=== PATIENT | female | born 1995 | race Caucasian/White ===

== ENCOUNTER 2019-05-02 14:54 | Outpatient (CLI) | payer MEDICAID, SELFPAY ==
[2019-05-02 15:28] LABS: Abs Immature Grans 0.06 k/cumm (0.0-0.09); Absolute Basophil Count 0.05 k/cumm (0.0-0.2); Absolute Eosinophil Count 0.24 k/cumm (0.0-0.7); Absolute Lymphocyte Count 3.28 k/cumm (1.2-3.4); Absolute Monocyte Count 1.08 k/cumm (0.11-0.7); Absolute Neutrophil Count 5.71 k/cumm (1.2-6.7); Basophils % 0.5; Eosinophils % 2.3; HCT 43.9 % (36.0-46.0); HGB 14.7 g/dL (12.0-15.5); Immature Grans % 0.6 %; Lymphocytes % 31.5; Mean Corp. HGB Concentration 33.5 g/dL (32.0-36.0); Mean Corpuscular Hemoglobin 29.6 pg (27.0-33.0); Mean Corpuscular Volume 88.3 fL (80-95); Mean Platelet Volume 10.2 fL (8.0-11.0); Monocytes % 10.4; Neutrophils % 54.7; Platelet Count 318 x1000/uL (130-400); RBC 4.97 m/cumm (4.00-5.20); RBC Distribution Width 12.6 % (11.7-14.6); White Blood Cell Count 10.42 k/cumm (4.4-10.8)
[2019-05-02 16:18] LABS: Hemoglobin A1C 5.9 % (3.8-5.6)
[2019-05-02 16:23] LABS: ALT 64 U/L (14-59); AST 28 U/L (15-37); Albumin 4.3 g/dL (3.4-5.0); Alkaline Phosphatase 110 U/L (46-116); Anion Gap 11.4 mmol/L (3-11); BUN 9 mg/dL (7-18); Bilirubin, Total 0.3 mg/dL (0.2-1.0); CO2 26.6 mmol/L (21.0-32.0); Calcium 9.1 mg/dL (8.5-10.1); Chloride 104 mmol/L (98-107); Glucose 85 mg/dL (74-106); Potassium 4.3 mmol/L (3.5-5.1); Sodium 142 mmol/L (136-145); TSH (W/Ref FT4) 2.29 uIU/mL (0.36-3.74); Total Protein 7.9 g/dL (6.4-8.2)
== END 2019-05-02 15:14 ==
PROVIDERS: PCP Nurse Practitioner Family; Visit Provider Obstetrics & Gynecology
DX: N91.2 Amenorrhea, unspecified (principal)
CPT/HCPCS: 36415; 80053; 83036; 84443; 85025

== ENCOUNTER 2023-06-04 10:50 | Outpatient (CLI) | payer OTHER, SELFPAY ==
[2023-06-04 12:22] LABS: Abs Immature Grans 0.02 10^3/uL (0.0-0.06); Absolute Basophil Count 0.06 10^3/uL (0.0-0.2); Absolute Eosinophil Count 0.26 10^3/uL (0.0-0.7); Absolute Lymphocyte Count 3.31 10^3/uL (1.2-3.4); Absolute Monocyte Count 0.58 10^3/uL (0.1-0.8); Absolute Neutrophil Count 4.83 10^3/uL (1.2-6.7); Basophils % 0.7; Eosinophils % 2.9; HCT 42.5 % (36.0-46.0); HGB 14.4 g/dL (11.2-15.7); Immature Grans % 0.2; Lymphocytes % 36.5; MCH 29.3 pg (27.0-33.0); MCHC 33.9 % (32.0-36.0); MCV 87 fL (80-95); Monocytes % 6.4; Neutrophils % 53.3; Platelet Count 358 10^3/uL (130-400); RBC 4.91 10^6/uL (3.93-5.22); RDW 11.8 % (11.7-14.6); RDW-SD 37.7 fL; WBC 9.06 10^3/uL (4.4-10.8)
[2023-06-04 12:34] LABS: Hemoglobin A1C 5.3 % (<5.7)
[2023-06-04 12:46] LABS: ALT 40 U/L (14-59); AST 18 U/L (15-37); Albumin 4.1 g/dL (3.4-5.0); Alkaline Phosphatase 78 U/L (46-116); Anion Gap 10.1 mmol/L (3-11); BUN 7 mg/dL (7-18); Bilirubin, Total 0.4 mg/dL (0.2-1.0); CO2 25.9 mmol/L (21.0-32.0); CREATININE 0.8 mg/dL (0.55-1.02); Calcium 9.4 mg/dL (8.5-10.1); Calculated LDL 117 mg/dL (<100); Chloride 103 mmol/L (98-107); Cholesterol 179 mg/dL (<200); Glucose 100 mg/dL (74-106); HDL Cholesterol 34 mg/dL (40-60); Potassium 4.3 mmol/L (3.5-5.1); Sodium 139 mmol/L (136-145); TSH (W/Ref FT4) 1.03 uIU/mL (0.36-3.74); Total Protein 7.8 g/dL (6.4-8.2); Triglyceride 143 mg/dL (<150)
[2023-06-05 10:07] LABS: Insulin 10.6 uIU/mL (<29.0)
[2023-06-05 17:05] LABS: C-Peptide 2.6 ng/mL (1.1 - 4.4)
[2023-06-12 09:58] LABS: ZnT8 Antibodies <15.0 U/mL (<15.0)
== END 2023-06-04 10:51 | disposition home or self-care (01) ==
LOC: LOS 10:50
PROVIDERS: PCP Nurse Practitioner Family; Referring Provider Nurse Practitioner Family; Visit Provider Nurse Practitioner Family
DX: Z76.89 Persons encountering health services in other specified circumstances (principal); E11.9 Type 2 diabetes mellitus without complications
CPT/HCPCS: 36415; 80053; 80061; 86337; 86341; 83036; 83525; 84443; 84681; 85025

== ENCOUNTER 2023-09-28 10:52 | Outpatient (REF) | payer OTHER, SELFPAY ==
--- NOTE | 2023-09-28 10:30 | PAPFT_PTH ---
PATIENT: Gudelia Cuellar LOC: [facility] U#:[id number] AGE/SX: 27/F ROOM: RE09/28/[address]: Adrienne Carranza NP : 1995 BED: DIS: 09/28/2023 SPEC #: [id number] RECD: 09/28/23 12:58 STATUS: VENESSA EVENS #: [id number] TOD: 09/28/23 10:[address]: Adrienne Carranza NP DEPT: [facility] Cytology RECD BY: Adrianne Hartmann ENTERED: 09/28/23 12:59 SP TYPE: PAPFT OTHR DR: Jaylyn Huston, SILVERING APPLICATOR Tissues: 1 - CX/ENDOCX FOR PAP SMEARS Procedures: PAP THIN PREP/UVM Screening HPV DNA PROBE Comments: [id number]
== END 2023-09-28 10:53 | disposition home or self-care (01) ==
LOC: LBN 10:52
PROVIDERS: PCP Nurse Practitioner Family; Visit Provider Nurse Practitioner Women's Health
DX: Z12.4 Encounter for screening for malignant neoplasm of cervix (principal)
CPT/HCPCS: 88142; 87624

== ENCOUNTER 2023-11-06 14:52 | Outpatient (REF) | payer OTHER, SELFPAY ==
--- OUTSIDE RECORDS SUMMARY | 2023-11-06 15:01 | XMS_ITS | Referral Summary ---
Author Organization [facility] Address [address] [place] [address] Care Team Providers Care Director Client Services Name Role Phone Unavailable Primary Care Provider Unavailabl e Encounters Date Type Department Care Team Description 09/30/[address] [facility] Pathology & Laboratory Medicine - [facility] [address] [place] [address] Adrienne Carranza APRN Encounter for other general examination from Last 3 Months Social History Tobacco Use Types Packs/Day Years Used Date Smoking Tobacco: Never Assessed Sex and Gender Information Value Date Recorded Sex Assigned at Not on file Gender Identity Not on file Sexual Orientation Not on file Plan of Treatment Not on file Procedures Procedure Name Priority Date/Time Associated Diagnosis Comments PAP TEST Today 09/28/2023 10:30 EDT Encounter for other general examination HPV DNA DETECTION WITH GENOTYPING, PCR Today 09/28/2023 10:30 EDT Encounter for other general examination from Last 3 Months Results * PAP TEST (09/28/2023 10:30 EDT) Specimens A. Cervix and/or Endocervix , ThinPrep Imaging System with Manual Evaluation 10/05/2023 15:41 T [facility] Specimen Adequacy Satisfactory for Evaluation - transformation zone component present 10/05/2023 15:41 T [facility] General Categorization Negative for intraepithelial lesion or malignancy 10/05/2023 15:41 T [facility] Descriptive Diagnosis Shift in selene present suggestive of bacterial vaginosis. 10/05/2023 15:41 T [facility] Attestation . 10/05/2023 15:41 [facility] at 1541 Clinical History See below 10/05/19 15:41 EDT [facility] HPV The result for the Human Papillomavirus (HPV) Detection-High Risk Types is Negative. No E6 or E7 mRNA is detected from HPV types 16,18,31,33,35,39 ,45,51,52,56,58,5 9,66, and 68 by industrial sales representative mediated amplification.Mattie ting was performed on specimen [id number] and was resulted on 10/05/2023 1541 EDT by KEITH, LAB INSTRUMENT RESULTS IN 10/05/2023 15:41 EDT [facility] Performing Lab [facility] 10/05/2023 15:41 EDT [facility] Scanned Images 10/05/2023 15:41 EDT [facility] Pap Test CERVIX UTERI STRUCTURE / Unknown 09/28/2023 10:30 EDT 09/30/2023 9:05 EDT Adrienne Carranza APRN PATHOLOGY ORDERAB LES Performing Organization Address City/[facility]/ZIP Co de Phone Number [facility] [address] [place] [address] * HUMAN PAPILLOMAVIRUS (HPV) DETECTION-HIGH RISK TYPES (09/28/2023 10:30 EDT) HPV other High Risk types, PCR Negative Negative 10/05/2023 15:41 EDT [facility] Comment:No E6 or E7 mRNA is detected from HPV types 16,18,31,33,35,39,45,51,52,56,58,59,66, and 68 by industrial sales representative mediated amplification. Pap Test CERVIX UTERI STRUCTURE / Unknown 09/28/2023 10:30 EDT 10/02/2023 10:17 EDT Adrienne Carranza APRN MICROBIOLOGY - GE NERAL ORDERABLES Performing Organization Address City/[facility]/ZIP Co de Phone Number [facility] [address] [place] [address] from Last 3 Months
--- OUTSIDE RECORDS SUMMARY | 2023-11-06 15:01 | XMS_ITS | Clinical Summary ---
Author Organization [facility] Address [address] [place] [address] Care Team Providers Care Pullman Car Repairer Name Role Phone Unavailable Primary Care Provider Unavailabl e Encounters Date Type Department Care Team Description 09/30/2023 Lab Requisition [facility] Pathology & Laboratory Medicine - [facility] [address] [place] [address] Adrienne Carranza APRN Encounter for other general examination from Last 3 Months Social History Tobacco Use Types Packs/Day Years Used Date Smoking Tobacco: Never Assessed Sex and Gender Information Value Date Recorded Sex Assigned at Not on file Gender Identity Not on file Sexual Orientation Not on file Plan of Treatment Health Maintenance Due Date Last Done Comments Hepatitis C Screen 1995 Hepatitis B Vaccine (1 of 3 - 19+ 3-dose series) 11/10 COVID-19 Vaccine ( season) 2022 Procedures Procedure Name Priority Date/Time Associated Diagnosis Comments PAP TEST Today 09/28/2023 10:30 EDT Encounter for other general examination HPV DNA DETECTION WITH GENOTYPING, PCR Today 09/28/2023 10:30 EDT Encounter for other general examination from Last 3 Months Results * PAP TEST (09/28/2023 10:30 EDT) Specimens A. Cervix and/or Endocervix , ThinPrep Imaging System with Manual Evaluation 10/05/2023 15:41 EDT [facility] Specimen Adequacy Satisfactory for Evaluation - transformation zone component present 10/05/2023 15:41 EDT [facility] General Categorization Negative for intraepithelial lesion or malignancy 10/05/2023 15:41 EDT [facility] Descriptive Diagnosis Shift in selene present suggestive of bacterial vaginosis. 10/05/2023 15:41 EDT [facility] Attestation . 10/05/2023 15:41 EDT [facility] at 1541 Clinical History See below 10/05/19 15:41 EDT [facility] HPV The result for the Human Papillomavirus (HPV) Detection-High Risk Types is Negative. No E6 or E7 mRNA is detected from HPV types 16,18,31,33,35,39 ,45,51,52,56,58,5 9,66, and 68 by extra hand mediated amplification.Mattie ting was performed on specimen [id number] and was resulted on 10/05/2023 1541 EDT by KEITH, LAB INSTRUMENT RESULTS IN 10/05/2023 15:41 EDT [facility] Performing Lab [facility] 10/05/2023 15:41 EDT [facility] Scanned Images 10/05/2023 15:41 EDT [facility] Pap Test CERVIX UTERI STRUCTURE / Unknown 09/28/2023 10:30 EDT 09/30/2023 9:05 EDT Adrienne Carranza APRN PATHOLOGY ORDERAB LES [facility] [address] [place], [place] [address] * HUMAN PAPILLOMAVIRUS (HPV) DETECTION-HIGH RISK TYPES (09/28/2023 10:30 EDT) HPV other High Risk types, PCR Negative Negative 10/05/2023 15:41 EDT [facility] Comment:No E6 or E7 mRNA is detected from HPV types 16,18,31,33,35,39,45,51,52,56,58,59,66, and 68 by extra hand mediated amplification. Pap Test CERVIX UTERI STRUCTURE / Unknown 09/28/2023 10:30 EDT 10/02/2023 10:17 EDT Adrienne Carranza APRN MICROBIOLOGY - GE NERAL ORDERABLES [facility] [address] [place] [address] from Last 3 Months
--- OUTSIDE RECORDS SUMMARY | 2023-11-06 15:01 | XMS_ITS | Encounter Summary ---
Author Organization [facility] Address [address] [place] [address] Care Team Providers Care Senior Software Project Manager Name Role Phone Unavailable Primary Care Provider Unavailabl e Encounter Details Date Type Department Care Team (Late st Contact Info) Description 06/04/2023 Lab Requisition [facility] Pathology & Laboratory Medicine - [address] [address] Outr Resulting Lab, Provider Social History Tobacco Use Types Packs/Day Years Used Date Smoking Tobacco: Never Assessed Sex and Gender Information Value Date Recorded Sex Assigned at Not on file Gender Identity Not on file Sexual Orientation Not on file documented as of this encounter Plan of Treatment Not on file documented as of this encounter Procedures Procedure Name Priority Date/Time Associated Diagnosis Comments INSULIN Routine 06/04/2023 10:51 EST documented in this encounter Results * INSULIN (06/04/2023 10:51 EST) Insulin 10.6 <29.0 uIU/mL 06/05/2023 10:02 EST [facility] Comment: Displayed Reference Range applies to fasting specimens only. Blood VENOUS BLOOD / Unknown 06/04/2023 10:51 EST 06/04/2023 17:26 EST Provider Outr Resulting Lab CHEMISTRY & BLOOD GAS ORDERABLES [facility] [address] [place] [address] documented in this encounter Visit Diagnoses Not on filedocumented in this encounter
--- OUTSIDE RECORDS SUMMARY | 2023-11-06 15:01 | XMS_ITS | Clinical Summary ---
Author Organization [facility] [address] Care Team Providers Care Sales Team Member Name Role Phone Jaylyn Huston APRN Primary Care Provider Allergies No known active allergies Immunizations Name Administration Dates Next Due Diphtheria,pertussis,tetanus 02/09/2001, 06/26/1997,06/01/1996,1995,01/19/1996 HIB Vaccine PRP-T (ActHIB, H iberix, OmniHib) 06/26/1997,06/01/1996,03/24/1996,1995 Hepatitis B Unspecified Formulation 1996,1 1995,01/19/1996 MMR Vaccine LIVE 02/09/2001,06/26/1997 Polio Vaccine (Orimune) 02/09/2001,06/26,06/01/1996,1995,01/19/1996 Social History Tobacco Use Types Packs/Day Years Used Date Smoking Tobacco: Never Assessed Sex and Gender Information Value Date Recorded Sex Assigned at Not on file Gender Identity Not on file Sexual Orientation Not on file Plan of Treatment Health Maintenance Due Date Last Done Comments HIV screen 11/10/2013 Hepatitis C Screening 11/10/2013 Tdap adult 11/10/2014 Tetanus vaccine 11/10/2014 02/09/2001, 06/11, 06/01/1996, Additional history exists PAP Smear 11/10/2016 Covid-19 Vaccine (2022-2 4 season) 2022 Influenza (Flu) vaccine (1 o f 1 - Influenza standard series) 12/13/2023 Hepatitis B vaccine (0-59 yrs) Completed 0 1996, 03/24/1996, 01/19/1996 Care Teams Sales Team Member Relationship Specialty Start Date End Date Jaylyn Huston APRN [address] [place] [address] PCP - General Family Medicine 06/02/23
--- OUTSIDE RECORDS SUMMARY | 2023-11-06 15:01 | XMS_ITS | Encounter Summary ---
Author Organization [facility] Address [address] [place] [address] Care Team Providers Care Print Color Operator Name Role Phone Unavailable Primary Care Provider Unavailabl e Encounter Details Date Type Department Care Team (Late st Contact Info) Description 09/30/2023 Lab Requisition [facility] Pathology & Laboratory Medicine - [facility] [address] [place] [address] Adrienne Carranza, TARIFF EXPERT [address] [place] [address] Encounter for other general examination Social History Tobacco Use Types Packs/Day Years [...] 10:30 EDT Encounter for other general examination documented in this encounter Results * HUMAN PAPILLOMAVIRUS (HPV) DETECTION-HIGH RISK TYPES (09/28/2023 10:30 EDT) HPV other High Risk types, PCR Negative Negative 10/05/2023 15:41 EDT [facility] Comment:No E6 or E7 mRNA is detected from HPV types 16,18,31,33,35,39,45,51,52,56,58,59,66, and 68 by aircraft avionics technician mediated amplification. Pap Test CERVIX UTERI STRUCTURE / Unknown 09/28/2023 10:30 EDT 10/02/2023 10:17 EDT Adrienne Carranza APRN MICROBIOLOGY - GE NERAL ORDERABLES [facility] [address] [place], [place] [id number] * PAP TEST (09/28/2023 10:30 EDT) Specimens A. Cervix and/or Endocervix , ThinPrep Imaging System with Manual Evaluation 10/05/2023 15:41 EDT [facility] Specimen Adequacy Satisfactory for Evaluation - transformation zone component present 10/05/2023 15:41 EDT [facility] General Categorization Negative for intraepithelial lesion or malignancy 10/05/2023 15:41 T [facility] Descriptive Diagnosis Shift in selene present suggestive of bacterial vaginosis. 10/05/2023 15:41 T [facility] Attestation . 10/05/2023 15:41 T [facility] at 1541 Clinical History See below 10/05/19 15:41 T [facility] HPV The result for the Human Papillomavirus (HPV) Detection-High Risk Types is Negative. No E6 or E7 mRNA is detected from HPV types 16,18,31,33,35,39 ,45,51,52,56,58,5 9,66, and 68 by aircraft avionics technician mediated amplification.Mattie ting was performed on specimen [id number] and was resulted on 10/05/2023 1541 EDT by KEITH, LAB INSTRUMENT RESULTS IN 10/05/2023 15:41 EDT [facility] Performing Lab [facility] 10/05/2023 15:41 EDT [facility] Scanned Images 10/05/2023 15:41 T [facility] Pap Test CERVIX UTERI STRUCTURE / Unknown 09/28/2023 10:30 EDT 09/30/2023 9:05 EDT Adrienne A Dillon TARIFF EXPERT PATHOLOGY ORDERAB LES [facility] [address] [place] [address] documented in this encounter Visit Diagnoses Diagnosis Encounter for other general examination documented in this encounter
--- OUTSIDE RECORDS SUMMARY | 2023-11-06 15:01 | XMS_ITS | Encounter Summary ---
Author Organization [facility] [place] [address] Care Team Providers Care Lithographer Apprentice Name Role Phone Jaylyn Huston APRN Primary Care Provider Reason for Referral * Consultation (Routine) - Closed Specialty Diagnoses / Procedures Referred By Jimmy kam Referred To Contact Gastroenterology Diagnoses EE (eosinophilic esophagitis) EOE Jaylyn Huston APRN [address] [place] [address] [facility] [address] [place] [id number] Referral ID Status Reason Start Date Expiration Date V isits Requested Visits Authorized [id number] Closed Consult, Test & Treat PCP Updated and/or Approved 06/02/2023 06/01/2024 6 6 Encounter Details Date Type Department Care Team (Late st Contact Info) Description 06/02/2023 Transcribe Orders eD Incoming Referrals [phone] Jaylyn Huston APRN [address] [place], [place] [address] EE (eosinophilic esophagitis) Social History Tobacco Use Types Packs/Day Years Used Date Smoking Tobacco: Never Assessed Sex and Gender Information Value Date Recorded Sex Assigned at Not on file Gender Identity Not on file Sexual Orientation Not on file documented as of this encounter Plan of Treatment Scheduled Referrals Name Type Priority Associated Diagnoses Order Schedule Referral to Gastroenterology Outpatient Referral Routine EE (eosinophilic esophagitis) Ordered: 06/02/2023 documented as of this encounter Visit Diagnoses Diagnosis EE (eosinophilic esophagitis) Eosinophilic esophagitis documented in this encounter Care Teams Lithographer Apprentice Relationship Specialty Start Date End Date Robel LAYLA De La O [address] [facility] [address] [place] [address] PCP - General Family Medicine 06/02/23 documented as of this encounter
[2023-11-08 15:45] LABS: HSV 1 DNA Result Positive (Negative); HSV 2 DNA Result Negative (Negative)
== END 2023-11-06 14:53 | disposition home or self-care (01) ==
LOC: LBN 14:52
PROVIDERS: PCP Nurse Practitioner Family; Visit Provider Nurse Practitioner Family
DX: N76.0 Acute vaginitis (principal)
CPT/HCPCS: 87529; 87480; 87510; 87660

== ENCOUNTER 2023-11-30 13:57 | Outpatient (REF) | payer OTHER, SELFPAY ==
[2023-12-01 12:30] LABS: Chlamydia Result Positive (Negative); GC Result Negative (Negative)
== END 2023-11-30 13:58 | disposition home or self-care (01) ==
LOC: LBN 13:57
PROVIDERS: PCP Nurse Practitioner Family; Visit Provider Nurse Practitioner Women's Health
DX: Z30.9 Encounter for contraceptive management, unspecified (principal); R10.9 Unspecified abdominal pain; Z30.430 Encounter for insertion of intrauterine contraceptive device; Z11.3 Encounter for screening for infections with a predominantly sexual mode of transmission
CPT/HCPCS: 87491; 87591

== ENCOUNTER 2024-01-13 09:37 | Outpatient (REF) | payer OTHER, SELFPAY ==
[2024-01-14 13:24] LABS: GC Result Negative (Negative)
[2024-01-14 15:38] LABS: Chlamydia Result Positive (Negative)
== END 2024-01-13 09:38 | disposition home or self-care (01) ==
LOC: LBN 09:37
PROVIDERS: PCP Nurse Practitioner Family; Visit Provider Nurse Practitioner Women's Health
DX: Z11.3 Encounter for screening for infections with a predominantly sexual mode of transmission (principal)
CPT/HCPCS: 87491; 87591

== ENCOUNTER 2025-01-18 13:43 | Outpatient (CLI) | payer SELFPAY ==
[2025-01-18 14:00] LABS: Abs Immature Grans 0.04 10^3/uL (0.0-0.06); HCT 44.1 % (36.0-46.0); HGB 14.6 g/dL (11.2-15.7); Immature Grans % 0.4 %; MCH 29.0 pg (27.0-33.0); MCHC 33.1 % (32.0-36.0); MCV 88 fL (80-95); MPV 10.2 fL (8.0-11.0); Platelet Count 270 10^3/uL (130-400); RBC 5.03 10^6/uL (3.93-5.22); RDW 12.0 % (11.7-14.6); RDW-SD 38.8 fL; WBC 9.33 10^3/uL (4.4-10.8)
[2025-01-18 14:15] LABS: Hemoglobin A1C 5.6 % (<5.7)
[2025-01-18 14:42] LABS: ALT 33 U/L (14-59); AST 15 U/L (15-37); Albumin 4.5 g/dL (3.4-5.0); Alkaline Phosphatase 88 U/L (46-116); Anion Gap 9.6 mmol/L (3-11); BUN 8 mg/dL (7-18); Bilirubin, Total 0.5 mg/dL (0.2-1.0); CO2 25.4 mmol/L (21.0-32.0); Calcium 9.1 mg/dL (8.5-10.1); Chloride 103 mmol/L (98-107); Estimated GFR 102.22 (mL/min/1.73m2); Glucose 98 mg/dL (74-106); Lipase 44 U/L (<78); Potassium 4.2 mmol/L (3.5-5.1); Sodium 138 mmol/L (136-145); TSH (W/Ref FT4) 0.84 uIU/mL (0.36-3.74); Total Protein 7.9 g/dL (6.4-8.2)
[2025-01-23 15:43] LABS: B. miyamotoi PCR Negative (Negative); Lyme Ab w Rflx to Lyme Confirm Negative (Negative)
[2025-01-23 15:44] LABS: Babesia divergens/MO-1 Negative (Negative); Ehrlichia muris eauclairensis Negative (Negative)
== END 2025-01-18 13:44 | disposition home or self-care (01) ==
LOC: LBO 13:44
PROVIDERS: PCP Nurse Practitioner Family; Visit Provider Nurse Practitioner Family
DX: R10.9 Unspecified abdominal pain (principal); R23.2 Flushing; R11.2 Nausea with vomiting, unspecified; R19.7 Diarrhea, unspecified; E11.9 Type 2 diabetes mellitus without complications
CPT/HCPCS: 36415; 80053; 83690; 87798; 83036; 84443; 85025; 86618